=== PATIENT | female | born 1990 | race Caucasian/White ===

== ENCOUNTER → 2021-05-23 09:35 | Outpatient (BNVA) | payer OTHER, SELFPAY | PROVIDERS: PCP Nurse Practitioner Family; Visit Provider Nurse Practitioner Family | DX: G47.10 Hypersomnia, unspecified (principal); F41.9 Anxiety disorder, unspecified | CPT/HCPCS: Q3014 ==

== ENCOUNTER → 2021-06-05 09:06 | Outpatient (REF) | payer OTHER, SELFPAY | LOC: HO.SL 09:06 | PROVIDERS: PCP Nurse Practitioner Family; Visit Provider Psychiatry & Neurology Neurology | DX: R06.83 Snoring (principal); G47.10 Hypersomnia, unspecified | CPT/HCPCS: 95806 ==

== ENCOUNTER → 2021-06-19 09:06 | Outpatient (BNVA) | payer OTHER, SELFPAY | PROVIDERS: PCP Nurse Practitioner Family; Visit Provider Nurse Practitioner Family | DX: Z13.89 Encounter for screening for other disorder (principal) ==